=== PATIENT | male | born 1965 | race Caucasian/White ===

== ENCOUNTER 2022-11-03 17:03 | Emergency (ER) | payer OTHER, MEDICAID, SELFPAY ==
[2022-11-03 17:11] VITALS: BP 125/58; PULSE 78; RESP 18; TEMP 36.9; O2SAT 99; BMI 25.8
[2022-11-03 18:02] VITALS: BP 114/64; PULSE 70; RESP 18; TEMP 36.8; O2SAT 99
--- NOTE | 2022-11-03 18:10 | PC.NURSE ---
Pt reports a blister on R-knee 10-14 days ago. States blister burst on day 2 and within 3 days the infection started to set in. Reports painful to palpate, scant serosanguinous fluid coming out of wound on knee, intermittently. Provider at bedside for eval and ultrasound exam of area.
--- NOTE | 2022-11-03 18:28 | ED.SKABFB ---
HPI - Skin/Abscess/Foreign Bdy <Bairon Mtz PA-C - Last Filed: 11/03/22 18:39> General Chief complaint: Skin/Abscess/Foreign Body Stated complaint: infected rt knee Time Seen by Provider: 11/03/22 17:59 Source: patient Mode of arrival: Ambulatory Limitations: no limitations History of Present Illness HPI narrative: 57-year-old male with no reported past medical history presents to the ED with a right knee wound for 1 week. Patient states that he sustained a blister after working on his knees a week ago, the blister popped, the area has become more red and painful. Area is also warm to touch. Patient denies fever, chills, nausea, vomiting. Patient has full range of motion of the knee. Related Data Previous Rx's Medication Instructions Recorded cephalexin 500 mg capsule 500 mg PO QID 7 days #28 caps 11/03/22 sulfamethoxazole 800 1 tab PO Q12H 7 days #14 tabs 11/03/22 mg-trimethoprim 160 mg tablet (Bactrim DS) Allergies Allergy/AdvReac Type Severity Reaction Status Date / Time No Known Drug Allergies Allergy Verified 11/03/22 17:11 Review of Systems <Bairon Mtz PA-C - Last Filed: 11/03/22 18:39> Review of Systems ROS Unobtainable: All systems reviewed & are unremarkable except as noted in HPI and below Constitutional Constitutional: Denies chills, Denies fatigue, Denies fever(s), Denies frequent falls, Denies lethargy and Denies weakness Eyes Eyes: Denies change in vision, Denies eye discharge, Denies irritation and Denies loss of vision ENT Ears, Nose, Mouth, and Throat: Denies change in voice, Denies dizziness, Denies neck pain, Denies sore throat and Denies throat swelling Cardiovascular Cardiovascular: Denies chest pain, Denies irregular heart rhythm, Denies lightheadedness, Denies palpitations, Denies dyspnea, Denies dyspnea on exertion and Denies orthopnea Respiratory Respiratory: Denies cough, Denies dyspnea, Denies dyspnea on exertion and Denies wheezing Gastrointestinal Gastrointestinal: Denies abdominal pain, Denies change in bowel habits, Denies diarrhea, Denies nausea and Denies vomiting Genitourinary Genitourinary: Denies hematuria, Denies flank pain, Denies urinary incontinence and Denies urinary urgency Musculoskeletal Musculoskeletal: Denies back pain, Denies muscle weakness, Denies neck pain, Denies numbness and Denies tingling Integumentary/Breasts Skin/Breast: Denies pruritus, Denies erythema, Denies rash and Reports wounds Neurologic Neurologic: Denies behavioral changes, Denies confusion, Denies dizziness, Denies frequent falls, Denies loss of vision, Denies numbness, Denies tingling and Denies weakness Psychiatric Psychiatric: Denies anxiety, Denies behavioral changes, Denies confusion, Denies depression, Denies homicidal ideation and Denies suicidal ideation Endocrine Endocrine: Denies fatigue, Denies flushing and Denies palpitations Hematologic/Lymphatic Hematologic/Lymphatic: Denies easy bruising Allergic/Immunologic Allergic/Immunologic: Denies urticaria, Denies throat swelling and Denies wheezing Patient History <Bairon Mtz PA-C - Last Filed: 11/03/22 18:39> Social History Smoking Status: Never smoker Smoking Status: Never smoker alcohol intake frequency: 0-2 drinks per day Substance Use Type: marijuana Exam <Bairon Mtz PA-C - Last Filed: 11/03/22 18:39> Narrative Exam Narrative: Const General:?cooperative, healthy appearing and comfortable [facility] Head:?normal to inspection Ears:?hearing grossly normal bilaterally Nose:?external nose normal Face and sinus:?normal facial exam and sinuses nontender Mouth:?oral mucosae normal Throat:?posterior oropharynx normal Eyes General:?appearance normal, both eyes and all related structures Neck Neck:?normal visual inspection and no lymphadenopathy noted Resp Effort & Inspection:?normal respiratory effort Auscultation:?clear to auscultation bilaterally Cardio Rate:?regular rate Rhythm:?regular rhythm Integumentary Wound on right knee is tender to touch, feels indurated, very slightly fluctuant. There is overlying erythema. No discharge noted on exam. Compartments soft. There is full range of motion. Strength and sensation is intact. Neurovascularly intact. Neuro General:?patient alert, patient awake and patient oriented x3 Initial Vital Signs Initial Vital Signs: Vital Signs Temperature 98.4 F 11/03/22 17:11 Pulse Rate 78 11/03/22 17:11 Respiratory Rate 18 11/03/22 17:11 Blood Pressure 125/58 L 11/03/22 17:11 Pulse Oximetry 99 11/03/22 17:11 Oxygen Delivery Method Room Air 11/03/22 17:11 <Fidelina Dominguez DO - Last Filed: 11/04/22 17:59> Initial Vital Signs Initial Vital Signs: Vital Signs Temperature 98.4 F 11/03/22 17:11 Pulse Rate 78 11/03/22 17:11 Respiratory Rate 18 11/03/22 17:11 Blood Pressure 125/58 L 11/03/22 17:11 Pulse Oximetry 99 11/03/22 17:11 Oxygen Delivery Method Room Air 11/03/22 17:11 Procedures <Bairon Mtz PA-C - Last Filed: 11/03/22 18:39> Abscess I/D I&D #1: Site: lower extremity Side (if applicable): right Sedation/analgesia: none Technique: needle aspiration Amount of fluid expressed (mL): 0.5 Irrigation: No Packing used?: none Course <Bairon Mtz PA-C - Last Filed: 11/03/22 18:39> Orders Ordered: ED Orders 11/03/22 18:22 Wound Culture and Gram Stain Stat Vital Signs Vital signs: Vital Signs - 8 hr 11/03/22 17:11 11/03/22 18:02 Temperature 98.4 F 98.3 F Pulse Rate 78 70 Respiratory Rate 18 18 Blood Pressure 125/58 L 114/64 Pulse Oximetry 99 99 Oxygen Delivery Method Room Air Room Air <Fidelina Dominguez DO - Last Filed: 11/04/22 17:59> Orders Ordered: ED Orders 11/03/22 18:22 Wound Culture and Gram Stain Stat Vital Signs Vital signs: Vital Signs - 8 hr 11/03/22 17:11 11/03/22 18:02 Temperature 98.4 F 98.3 F Pulse Rate 78 70 Respiratory Rate 18 18 Blood Pressure 125/58 L 114/64 Pulse Oximetry 99 99 Oxygen Delivery Method Room Air Room Air MDM - Skin/Abscess/Foreign Bdy <PORTIA Melendez Last Filed: 11/03/22 18:39> MDM Narrative Medical decision making narrative: 57-year-old male with no reported past medical history presents to the ED with a right knee wound for 1 week. Concern for abscess versus cellulitis versus other. Needle aspiration only drained of small amount of blood, no pus. It is possible that patient's wound is at the beginning of abscess formation versus cellulitis. Will prescribe antibiotics. ED return precautions discussed with patient. Patient verbalized understanding. Medical records reviewed: Yes Discharge Plan Departure Patient Disposition: Home Clinical Impression: Cellulitis Instructions: DI for Cellulitis -- Adult Activity Restrictions/Additional Instructions: You were evaluated in the ED today for a skin infection. You are being prescribed antibiotics. Please take those as prescribed. It is also possible that the wound is in the beginning stages of abscess formation. Please return to the ED if your symptoms worsen, you note worsening redness, warmth, pus, pain, swelling. Please follow-up with your PCP as soon as possible. Prescriptions: New sulfamethoxazole-trimethoprim [Bactrim DS] 800-160 mg tablet 1 tab PO Q12H 7 Days Qty: 14 0RF cephalexin 500 mg capsule 500 mg PO QID 7 Days Qty: 28 0RF Stand Alone Forms: Patient Portal/API <Fidelina Dominguez DO - Last Filed: 11/04/22 17:59> Cosign ED Attending Tamica Attestation: I was immediately available in the department for consultation. Documentation has been reviewed.
== END 2022-11-03 18:30 | disposition home or self-care (01) ==
PROVIDERS: Emergency Provider Student in an Organized Health Care Education/Training Program
DX: L03.115 Cellulitis of right lower limb (principal)
CPT/HCPCS: 10060; 87070; 87075; 87077; 87147; 87186; 87205; 99282; 99283